=== PATIENT | male | born 1970 | race Asian ===

== ENCOUNTER 2020-07-30 14:37 | Emergency (ER) | payer OTHER ==
[~2020-07-30] VITALS: Ht 170.2 cm; Wt 60.8 kg
[2020-07-30 14:53] VITALS: Ht 170.2 cm; Wt 60.8 kg
[2020-07-30 16:00] VITALS: BP 112/71
== END 2020-07-30 16:00 | disposition home or self-care (01) ==
LOC: ED 14:37
DX: L03.115 Cellulitis of right lower limb (principal)